=== PATIENT | male | born 1960 | race Caucasian/White ===

== ENCOUNTER → 2016-11-20 | Outpatient (CLI) | payer MEDICARE ==
[2014-04-30 07:28] VITALS: BP 146/97
[~2016-11-20] MED LIST: ALPR0.5T6 PO; ASPI81TA9 PO; CEFI200S PO; CONTRAST GIVEN MC PRN; DOCU100C5 PO; Erythromycin Base PO; HYDR25TA9 PO; IOHEXOL 240 MG/ML 50ML VIAL. PO ONE; IOHEXOL 300 MG/ML 75 ML VIAL IV ONE; LISI-334 PO; ONDA-35 PO; OXYC10TA PO; PRED20TA PO; QUET150T PO; RANI150T2 PO; SIMV40TA3 PO
[2016-11-20 08:33] LABS: CREATININE 1.2 mg/dL (0.7-1.3); GFR 63.1
--- NOTE | 2016-11-20 11:51 | RAD ---
Indication abdominal mass. Hernia. Axial images through the abdomen and pelvis were obtained. Both oral and IV contrast were administered. 75 cc of Omnipaque 300 was administered intravenously. No prior CT imaging of the abdomen or pelvis is available. The lung bases are clear. There is a ventral abdominal wall hernia in the upper abdomen, in the midline and extending to the right. The hernia contains small bowel loops and appears uncomplicated. There are bilateral inguinal hernias containing fat and also appearing uncomplicated. The liver and spleen appear unremarkable. Cholelithiasis is noted. The pancreas and adrenal glands appear normal. There is a 2.6 cm right renal cyst. An acute finding in the abdomen is not seen. In the pelvis moderately extensive diverticular disease is seen associated with the large bowel. There is no active inflammation. Note is made that a small portion of the mid transverse colon is incorporated into the ventral abdominal wall hernia. IMPRESSION: No acute finding seen in the abdomen or pelvis. Ventral abdominal wall hernia containing small bowel and a portion of transverse colon. The hernia appears uncomplicated. Moderately extensive diverticular disease associated with the large bowel. No active inflammation seen. Cholelithiasis PQRS Compliance Statement: One or more of the following individualized dose reduction techniques were utilized for this examination: 1. Automated exposure control 2. Adjustment of the mA and/or kV according to patient size 3. Use of iterative reconstruction technique
== END | disposition home or self-care (01) ==
LOC: CT 07:42
PROVIDERS: ATTEND Surgery
DX: R19.00 Intra-abdominal and pelvic swelling, mass and lump, unspecified site (principal); K43.2 Incisional hernia without obstruction or gangrene
CPT/HCPCS: 36415; 74177; 82565; Q9966; Q9967

== ENCOUNTER → 2016-12-04 | Outpatient (CLI) | payer MEDICARE, MEDICAID ==
[2014-04-30 07:28] VITALS: BP 146/97
[~2016-12-04] MED LIST changes: +ALLO100T PO; -CONTRAST GIVEN MC PRN; +CYCL10TA2 PO; -IOHEXOL 240 MG/ML 50ML VIAL. PO ONE; -IOHEXOL 300 MG/ML 75 ML VIAL IV ONE; +TRAZ50TA15 PO
[2016-12-04 15:18] LABS: BASO # 0.1 x10^3/uL (0.0-0.2); BASO % 1 % (0-3); EOS % 3 % (0-3); HEMATOCRIT 41.5 % (39.0-53.0); HEMOGLOBIN 14.2 g/dL (13.0-17.5); LYMPH # 3.7 x10^3/uL (1.0-4.8); LYMPH % 36 % (24-48); MEAN CORPUSCULAR HEMOGLOBIN 30 pg (25-35); MEAN CORPUSCULAR HGB CONC 34 g/dL (31-37); MEAN CORPUSCULAR VOLUME 86 fL (79-100); MONO % 6 % (0-9); NEUT % 55 % (31-73); PLATELET COUNT 225 x10^3/uL (140-400); RED BLOOD COUNT 4.83 x10^6/uL (4.30-5.70); RED CELL DISTRIBUTION WIDTH 13.2 % (11.5-14.5); WHITE BLOOD COUNT 10.4 x10^3/uL (4.0-11.0)
[2016-12-04 15:47] LABS: ALBUMIN 3.8 g/dL (3.4-5.0); CALCIUM 9.2 mg/dL (8.5-10.1); CREATININE 1.3 mg/dL (0.7-1.3); DIRECT BILIRUBIN 0.1 mg/dL (0.0-0.2); GFR 57.5; POTASSIUM 3.7 mmol/L (3.5-5.1)
== END | disposition home or self-care (01) ==
LOC: SURGPAT 14:25
PROVIDERS: ATTEND Surgery
DX: Z01.812 Encounter for preprocedural laboratory examination (principal)
CPT/HCPCS: 36415; 80048; 82040; 82248; 85027